=== PATIENT | female | born 1980 | race Caucasian/White ===

== ENCOUNTER 2017-01-30 05:16 | Emergency (ER) | payer SELFPAY ==
[2017-01-30] MEDS ORDERED: methylPREDNISolone Sod Succ/PF 125 MG/2 ML VIAL ONE (06:48)
[2017-01-30] MEDS ORDERED: Ondansetron HCl/PF 4 MG/2 ML Vial ONE (06:48)
[2017-01-30] MEDS ORDERED: Ketorolac Tromethamine 30 MG/ML VIAL ONE (06:48)
[2017-01-30] MEDS ORDERED: diphenhydrAMINE HCl 50 MG/ML 1 ML VIAL ONE ×2 (07:04→07:24)
[2017-01-30] MEDS ORDERED: Sodium Chloride 0.9% 1,000 ML BAG ONE (07:39)
== END 2017-01-30 08:35 | disposition home or self-care (01) ==
LOC: MADERS 05:16
DX: G43.909 Migraine, unspecified, not intractable, without status migrainosus (principal); T50.905A Adverse effect of unspecified drugs, medicaments and biological substances, initial encounter; F17.210 Nicotine dependence, cigarettes, uncomplicated
CPT/HCPCS: 96361; 96374; 96375; 96376; J1200; J1885; J2270; J2405; J2930; J7050